=== PATIENT | female | born 1975 | race Caucasian/White ===

== ENCOUNTER → 2016-04-22 | Outpatient (CLI) | payer BC ==
--- NOTE | 2016-04-22 09:59 | US ---
EXAMINATION TYPE: US abd limited kidneys/bladder DATE OF EXAM: 04/22/2016 9:26 AM COMPARISON: 06/22/2015 CLINICAL HISTORY: 40-year-old female R10.9 R Flank Pain, R10.11 RUQ Pain. TECHNIQUE: Multiple sonographic images of the right upper quadrant, kidneys and bladder were obtained . FINDINGS: Liver Length: 16.1 cm Gallbladder Wall: 0.2 cm CBD: 0.3 cm Right Kidney: 11.4 x 6.5 x 6.3 cm Left Kidney: 10.6 x 5.5 x 5.5 cm Pancreas: Tail obscured by overlying bowel gas. Otherwise, grossly unremarkable. Liver: Coarsened echotexture may be on a technical basis. No focal lesion seen. Gallbladder: No abnormal gallbladder distention, wall thickening, pericholecystic fluid, or shadowing calculi. CBD: Within normal limits. Right Kidney: No hydronephrosis Left Kidney: No hydronephrosis Bladder: No gross abnormality of the urine distended bladder. Both ureteral jets are visualized. IMPRESSION: 1. Coarsened echotexture of the liver could be on a technical basis or could represent underlying non specific hepatocellular disease. Correlate with LFTs in patient risk factors. 2. No hydronephrosis. Both ureteral jets are seen.
== END | disposition home or self-care (01) ==
LOC: RADUSMAIN 08:59
PROVIDERS: ATTEND Family Medicine
DX: R10.11 Right upper quadrant pain (principal)
CPT/HCPCS: 76705; 76770

== ENCOUNTER → 2016-12-05 | Outpatient (CLI) | payer BC ==
[2016-12-05 13:47] LABS: Anion Gap 7 mmol/L; Blood Urea Nitrogen 5 mg/dL (7-17); Calcium 8.6 mg/dL (8.4-10.2); Carbon Dioxide 24 mmol/L (22-30); Chloride 105 mmol/L (98-107); Glucose 88 mg/dL (74-99); Non-African American GFR(MDRD) >60 (>60 ml/min/1.73 sqM); Potassium 3.9 mmol/L (3.5-5.1); Sodium 136 mmol/L (137-145)
[2016-12-05 14:25] LABS: Aty Lym Flag Slight; CH 32.6; CHCM 32.9; HCT 43.5 % (34.0-46.0); HDW 2.28; HGB 13.9 gm/dL (11.4-16.0); MCHC 32.1 g/dL (31.0-37.0); MCV 99.8 fL (80.0-100.0); Mean Platelet Volume 7.8; RBC 4.36 m/uL (3.80-5.40); RDW 13.4 % (11.5-15.5); WBC 8.4 k/uL (3.8-10.6); WBC (Perox) 8.87
[2016-12-05 14:35] LABS: Add Differential Manual Differential
[2016-12-05 14:39] LABS: Manual Review Performed; Nucleated Red Blood Cells 0 /100 WBC (0-0); Total Cells Counted 100
[2016-12-05 14:40] LABS: RBC Morphology Normal
== END | disposition home or self-care (01) ==
LOC: LABPAT 12:54
PROVIDERS: ATTEND Obstetrics & Gynecology
DX: Z01.812 Encounter for preprocedural laboratory examination (principal)
CPT/HCPCS: 80048; 85025; 86850; 86900; 86901

== ENCOUNTER → 2017-03-09 | Outpatient (CLI) | payer BC ==
--- NOTE | 2017-03-10 07:23 | MM ---
Reason for exam: clinical finding. Last mammogram was performed 3 years and 3 months ago. History: Patient is nulliparous. Taking hormonal contraceptives for 4 years. Indicated problem(s): lump or thickening in the right breast. Physical Findings: Nurse did not find any significant physical abnormalities on exam. MG Diagnostic Mammo w CAD LUZ Bilateral CC and MLO view(s) were taken. ML and spot compression MLO view(s) were taken of the left breast. Prior study comparison: December 15, 2013, bilateral MG screening mammo w CAD. The breast tissue is heterogeneously dense. This may lower the sensitivity of mammography. Nodular density upper outer quadrant 8.7cm from nipple noted. Ultrasound is recommended. These results were verbally communicated with the patient and result sheet given to the patient on 03/09/17. ASSESSMENT: Incomplete: need additional imaging evaluation, BI-RAD 0 RECOMMENDATION: Ultrasound of the left breast.
--- NOTE | 2017-03-10 07:24 | USB ---
Reason for exam: additional evaluation requested from abnormal screening. History: Patient is nulliparous. Taking hormonal contraceptives for 4 years. US Breast Limited LT Left breast ultrasound demonstrates no cystic or solid lesion seen. A 6 month follow up left mammogram recommended. These results were verbally communicated with the patient and result sheet given to the patient on 03/09/17. ASSESSMENT: Probably benign, BI-RAD 3 RECOMMENDATION: Follow-up diagnostic mammogram of the left breast in 6 months.
== END | disposition home or self-care (01) ==
LOC: RADMAMWWP 14:16
PROVIDERS: ATTEND Family Medicine
DX: N63.10 Unspecified lump in the right breast, unspecified quadrant (principal); R92.8 Other abnormal and inconclusive findings on diagnostic imaging of breast
CPT/HCPCS: 77066

== ENCOUNTER → 2017-06-11 | Outpatient (CLI) | payer BC ==
--- NOTE | 2017-06-11 15:50 | US ---
EXAMINATION TYPE: US pelvic complete DATE OF EXAM: 06/11/2017 COMPARISON: US February 03, 2015 CLINICAL HISTORY: R10.2 pelvic pain. Intermittent pelvic pain x coup le weeks, occasional bleeding since hysterectomy 6 months ago TECHNIQUE: Transabdominal (TA). Transabdominal sonographic images of the pelvis were acquired. Date of LMP: 2016 EXAM MEASUREMENTS: Uterus: surgically absent Endometrial Stripe: surgically absent Right Ovary: 3.1 x 2.5 x 2.9 cm Left Ovary: 3.0 x 1.5 x 2.7 cm 1. Uterus: surgically absent 2. Endometrium: surgically absent 3. Right Ovary: 1.4 x 1.4 x 1.5cm hypoechoic area 4. Left Ovary: wnl 5. Bilateral Adnexa: wnl 6. Posterior cul-de-sac: wnl There has been interval hysterectomy. There is 1.5 cm round anechoic lesion within right ovary likely reflecting simple small ovarian cyst IMPRESSION: A 1.5 cm simple small right ovarian cyst is present otherwise unremarkable study.
== END ==
LOC: RADUSWWP 14:54
PROVIDERS: ATTEND Obstetrics & Gynecology
DX: N83.291 Other ovarian cyst, right side (principal)
CPT/HCPCS: 76856

== ENCOUNTER → 2017-11-16 | Outpatient (CLI) | payer BC ==
--- NOTE | 2017-11-17 07:28 | MM ---
Reason for exam: follow-up at short interval from prior study. Last mammogram was performed 8 months ago. History: Patient is nulliparous. Taking hormonal contraceptives for 4 years. Physical Findings: Nurse did not find any significant physical abnormalities on exam. MG Diagnostic Mammo LT w CAD CC and MLO view(s) were taken of the left breast. Prior study comparison: March 09, 2017, bilateral MG diagnostic mammo w CAD LUZ. December 15, 2013, bilateral MG screening mammo w CAD. The breast tissue is heterogeneously dense. This may lower the sensitivity of mammography. There are benign appearing round calcifications in the left breast. Asymmetric breast tissue, stable, left posterior upper tissue. There is no discrete abnormality. These results were verbally communicated with the patient and result sheet given to the patient on 11/16/17. ASSESSMENT: Benign, BI-RAD 2 RECOMMENDATION: Routine screening mammogram of both breasts in 4 months. Back on schedule for February 2018.
== END | disposition home or self-care (01) ==
LOC: RADMAMWWP 15:30
PROVIDERS: ATTEND Family Medicine
DX: N63.21 Unspecified lump in the left breast, upper outer quadrant (principal)
CPT/HCPCS: 77065

== ENCOUNTER 2018-01-02 21:57 | Emergency (ER) | payer BC ==
[2018-01-02] MEDS ORDERED: KETOROLAC 30 MG/ML 1 ML VIAL IM STA (22:11)
--- NOTE | 2018-01-02 22:22 | XR ---
EXAMINATION TYPE: XR foot complete RT DATE OF EXAM: 01/02/2018 COMPARISON: NONE HISTORY: Right foot pain TECHNIQUE: 3 views FINDINGS: Metatarsals are intact. I see no fracture nor dislocation. There is plantar calcaneal spurr ing. There are no erosions. IMPRESSION: Calcaneal spurring. No fracture.
--- NOTE | 2018-01-02 22:32 | ED ---
Lower Extremity Injury HPI - General Source: patient Mode of arrival: ambulatory Limitations: no limitations <Merced Hill - Last Filed: 01/02/18 22:54> <Enriqueta Garcia - Last Filed: 01/03/18 00:04> - General Chief Complaint: Extremity Injury, Lower Stated Complaint: FOOT INJURY Time Seen by Provider: 01/02/18 22:07 - History of Present Illness Initial Comments: 42yo female with PMH of previous gastric bypass presenting today for cc of right foot pain. At around 9:35PM this evening pt was using laptop when it fell onto the top of her right foot. Pt stated that it immediately began to swell and bruise. pt admitted to pain with ambulation/weight bearing. Pt denies numbness, tingling, loss of sensation, inability to move toes, injury to ankle or any other extremity, pt denies falling. Upon arrival pt appears well, she is limping. Pt VS within acceptable limits. Remainder of ROS (-), patient denies any recent fever, chills, shortness of breath, chest pain, back pain, abdominal pain, nausea or vomiting, numbness or tingling, dysuria or hematuria, constipation or diarrhea, headaches or visual changes, or any other complaints. (Merced Hill) - Related Data Home Medications Medication Instructions Recorded Confirmed Multivitamins, Thera [Multivitamin] 1 tab PO DAILY 02/20/14 12/15/16 ALPRAZolam [Xanax] 0.25 mg PO DAILY PRN 12/10/16 12/15/16 Biotin 5,000 mcg PO DAILY 12/10/16 12/15/16 Cholecalciferol (Vitamin D3) 2,000 unit PO DAILY 12/10/16 12/15/16 [Vitamin D3] Melatonin 5 mg PO HS 12/10/16 12/15/16 Vitamin A (Unknown Dose) 1 tab PO DAILY 12/10/16 12/15/16 Previous Rx's Medication Instructions Recorded Acetaminophen-Codeine 300-30mg 1 tab PO Q4H PRN #30 tablet 12/15/16 [Tylenol #3] Ibuprofen [Motrin] 600 mg PO Q6HR PRN #30 tab 12/15/16 Allergies Allergy/AdvReac Type Severity Reaction Status Date / Time clindamycin HCl Allergy Anaphylaxis Verified 01/02/18 22:06 [From Cleocin] clindamycin palmitate HCl Allergy Anaphylaxis Verified 01/02/18 22:06 [From Cleocin] clindamycin phosphate Allergy Anaphylaxis Verified 01/02/18 22:06 [From Cleocin] Review of Systems ROS Other: All systems not noted in ROS Statement are negative. Constitutional: Denies: fever, chills Eyes: Denies: eye pain ENT: Denies: ear pain, throat pain Respiratory: Denies: cough, dyspnea, wheezes, hemoptysis, stridor Cardiovascular: Denies: chest pain, palpitations Gastrointestinal: Denies: abdominal pain, nausea, vomiting, diarrhea, constipation, hematemesis, melena Genitourinary: Denies: urgency, dysuria, frequency, hematuria Musculoskeletal: Reports: other (pain lateral aspect of right foot). Denies: back pain Skin: Reports: as per HPI, change in color (bruising, denies any pallor). Denies: rash, lesions Neurological: Denies: headache, weakness, numbness, paresthesias, confusion <Merced Hill L - Last Filed: 01/02/18 22:54> ROS Other: All systems not noted in ROS Statement are negative. <Enriqueta Garcia P - Last Filed: 01/03/18 00:04> ROS Statement: Those systems with pertinent positive or pertinent negative responses have been documented in the HPI. Past Medical History Past Medical History: No Reported History Additional Past Medical History / Comment(s): PT STATES HX OF FIBROIDS History of Any Multi-Drug Resistant Organisms: None Reported Past Surgical History: Bariatric Surgery, Tonsillectomy, Tubal Ligation, Uterine Ablation Additional Past Surgical History / Comment(s): GASTRIC SLEEVE, BENIGN LYMPH NODES GROIN REMOVED, EXPLORATORY ABDOMINAL SX, D&C X2 left knee arthroscopy, Past Anesthesia/Blood Transfusion Reactions: No Reported Reaction Past Psychological History: Anxiety Smoking Status: Never smoker Past Alcohol Use History: Occasional Past Drug Use History: None Reported - Past Family History Mother Family Medical History: Deep Vein Thrombosis (DVT) <Merced Hill - Last Filed: 01/02/18 22:54> General Exam Limitations: no limitations <Merced Hill - Last Filed: 01/02/18 22:54> <Enriqueta Garcia P - Last Filed: 01/03/18 00:04> - General Exam Comments Initial Comments: General: The patient is awake and alert, in no distress, and does not appear acutely ill. Eye: Pupils are equal, round and reactive to light, extra-ocular movements are intact. No nystagmus. There is normal conjunctiva bilaterally. No signs of icterus. Ears, nose, mouth and throat: There are moist mucous membranes and no oral lesions. Neck: The neck is supple, there is no tenderness or JVD. Cardiovascular: There is a regular rate and rhythm. No murmur, rub or gallop is appreciated. Respiratory: Lungs are clear to auscultation, respirations are non-labored, breath sounds are equal. No wheezes, stridor, rales, or rhonchi. Musculoskeletal: Upon inspection there is bruising near base of 5th metatarsal , no bruising or pain of the midfoot or forefoot. Pt admits to tenderness to palpation along length of fifth digit/metarsal. Pt is able to wiggle all five digits of the feet b/l equally. Strength 5/5 at the ankle equal b/l. Sensation intact. DP pulses equal bilaterally 2+. Compartments are soft and compressible. Neurological: A&O x 3. CN II-XII intact, There are no obvious motor or sensory deficits. Coordination appears grossly intact. Speech is normal. Skin: Skin is warm and dry and no rashes or lesions are noted. Psychiatric: Cooperative, appropriate mood & affect, normal judgment. (Merced Hill) Vital Signs 01/02/18 01/02/18 22:04 22:43 Temperature 98.1 F 98.2 F Pulse Rate 77 74 Respiratory 18 16 Rate Blood Pressure 119/68 132/77 O2 Sat by Pulse 99 97 Oximetry Medical Decision Making <Merced Hill L - Last Filed: 01/02/18 22:54> <Enriqueta Garcia P - Last Filed: 01/03/18 00:04> - Medical Decision Making XR (-), no concern for lisfranc at this time, no mid/forefoot pain or bruising. Pt neurovascularly intact, compartments soft and compressible. Pt was instructed to repeat XR in 5 days if symptoms persist and to ambulate using crutches for next 2-3 days. In addition pt was instructed to f/u with primary care within 48 hours. Ice was applied to the area, pt given toradol 30mg IM, she states she previously has tolerated reguardless of her bypass surgery. Pt placed in JENIFER bandage, pt states she has crutches for ambulation at home. Pt given work note for next 2 days. At this time after discussing all results with both patient and attending Dr. Garcia. I feel pt is stable for discharge. To parameters discussed at length with patient who verbalized understanding. All findings were discussed with patient from radiographic imaging. Patient was discharged in stable condition, patient agreeable with discharge. (Merced Hill) I was available for consultation in the emergency department. The history and physical exam were done by the midlevel provider. I was consulted for this patient's care. I reviewed the case with the midlevel provider and based on their presentation of the patient, I agree with the assessment, medical decision making and plan of care as documented. (Enriqueta Garcia) Disposition Is patient prescribed a controlled substance at d/c from ED?: No Time of Disposition: 22:32 <Merced Hill - Last Filed: 01/02/18 22:54> <Enriqueta Garcia - Last Filed: 01/03/18 00:04> Clinical Impression: Contusion of right foot Disposition: HOME SELF-CARE Condition: Good Instructions: Foot Contusion (ED) Additional Instructions: Please use over the counter pain medication as discussed. Please follow-up with family doctor in the next 2 days, if symptoms persist >5 days I would get repeat XRAY. Please use crutches for ambulation for next 2-3 days. Please return to emergency room if the symptoms increase or worsen or for any other concerns. Referrals: Rohan Olivo MD [Primary Care Provider] - 1-2 days
[2018-01-02 22:47] VITALS: BP 132/77; PULSE 74; RESP 16; TEMP 98.2
== END 2018-01-02 22:43 | disposition home or self-care (01) ==
LOC: EC 21:57
DX: S90.31XA Contusion of right foot, initial encounter (principal); Z88.1 Allergy status to other antibiotic agents; Z79.899 Other long term (current) drug therapy; W20.8XXA Other cause of strike by thrown, projected or falling object, initial encounter; Y93.89 Activity, other specified
CPT/HCPCS: 73630; 99283; 96372; J1885

== ENCOUNTER → 2020-04-30 | Outpatient (CLI) | payer BC ==
--- NOTE | 2020-05-02 12:05 | MM ---
Reason for exam: screening (asymptomatic). Last mammogram was performed 2 years and 5 months ago. History: Patient is nulliparous. Took hormonal contraceptives for 4 years. Physical Findings: A clinical breast exam by your physician is recommended on an annual basis and results should be correlated with mammographic findings. MG 3D Screening Mammo W/Cad Bilateral CC and MLO view(s) were taken. Prior study comparison: March 09, 2017, bilateral MG diagnostic mammo w CAD LUZ. December 15, 2013, bilateral MG screening mammo w CAD. The breast tissue is heterogeneously dense. This may lower the sensitivity of mammography. 10 o'clock right focal asymmetry is more defined and incompletely disperses on 3D images. ASSESSMENT: Incomplete: need additional imaging evaluation, BI-RAD 0 RECOMMENDATION: Special view mammogram of the right breast. (3D) If lesion persists on supplemental views, image directed ultrasound is recommended. [facility] will attempt to contact patient to return for supplemental views and ultrasound if indicated.
== END ==
LOC: RADMAMWWP 16:33
PROVIDERS: ATTEND Family Medicine
DX: Z12.31 Encounter for screening mammogram for malignant neoplasm of breast (principal)
CPT/HCPCS: 77063; 77067

== ENCOUNTER → 2020-05-10 | Outpatient (CLI) | payer BC ==
--- NOTE | 2020-05-13 14:13 | MM ---
Reason for exam: additional evaluation requested from abnormal screening. Last mammogram was performed less than 1 month ago. History: Patient is nulliparous. Took hormonal contraceptives for 4 years. Physical Findings: Nurse did not find any significant physical abnormalities on exam. MG 3D Work Up W/Cad RT Spot compression CC, spot compression MLO, and LM view(s) were taken of the right breast. Prior study comparison: April 30, 2020, bilateral MG 3d screening mammo w/cad. November 16, 2017, left breast MG diagnostic mammo LT w CAD. The breast tissue is heterogeneously dense. This may lower the sensitivity of mammography. No distinct lesion persists on additional views. These results were verbally communicated with the patient and result sheet given to the patient on 05/10/20. ASSESSMENT: Benign, BI-RAD 2 RECOMMENDATION: Return to routine screening mammogram schedule for both breasts.
== END | disposition home or self-care (01) ==
LOC: RADMAMWWP 15:07
PROVIDERS: ATTEND Family Medicine
DX: R92.2 Inconclusive mammogram (principal)
CPT/HCPCS: 77061; 77065

== ENCOUNTER → 2021-05-10 | Outpatient (CLI) | payer BC ==
[2021-05-10 17:17] LABS: Basophils # (A) 0.06 X 10*3/uL (0.00-0.10); Basophils % (A) 0.8 %; Eosinophils # (A) 0.45 X 10*3/uL (0.04-0.35); Eosinophils % (A) 6.2 %; HCT 43.7 % (37.2-46.3); HGB 14.1 g/dL (12.0-15.0); Immature Grans, Automated 0.1 %; Lymphocytes # (A) 2.62 X 10*3/uL (0.90-5.00); Lymphocytes % (A) 36.2 %; MCH 31.9 pg (27.0-32.0); MCHC 32.3 g/dL (32.0-37.0); MCV 98.9 fL (80.0-97.0); Mean Platelet Volume 11.4 fL (9.5-12.2); Monocytes # (A) 0.45 X 10*3/uL (0.20-1.00); Monocytes % (A) 6.2 %; NRBC Per 100 WBC 0 /100 WBCS (0.0-0.0); Neutrophils # (A) 3.64 X 10*3/uL (1.80-7.70); Neutrophils % (A) 50.5 %; Platelet Count 256 X 10*3/uL (140-440); RBC 4.42 X 10*6/uL (4.10-5.20); RDW 12.5 % (11.5-14.5); WBC 7.23 X 10*3/uL (4.50-10.00)
[2021-05-10 17:50] LABS: ALT 14 U/L (8-44); AST 14 U/L (13-35); African American GFR (CKD) 126.7 (60.0-200.0); Albumin 4.1 g/dL (3.8-4.9); Albumin/Globulin Ratio 1.72 (1.60-3.17); Alkaline Phosphatase 106 U/L (41-126); BUN/Creat Ratio 9.44 Ratio (12.00-20.00); C Reactive Protein <0.30 mg/dL (0.00-0.80); Carbon Dioxide 23.5 mmol/L (20.0-27.5); Chloride 104 mmol/L (96-109); Chol/HDL Ratio 4.75 Ratio; Globulin 2.4 g/dL (1.6-3.3); Glucose 95 mg/dL (70-110); LDL Cholesterol,Calculated 119.2 mg/dL (0.0-131.0); Non-African American GFR(CKD) 109.4 (60.0-200.0); Potassium 4.1 mmol/L (3.5-5.5); Sodium 137 mmol/L (135-145); Total Protein 6.5 g/dL (6.2-8.2)
== END | disposition home or self-care (01) ==
LOC: LABWHC1 10:24
PROVIDERS: ATTEND Family Medicine
DX: Z13.220 Encounter for screening for lipoid disorders (principal); R53.83 Other fatigue; Z13.1 Encounter for screening for diabetes mellitus
CPT/HCPCS: 36415; 80053; 80061; 82306; 84439; 84443; 84481; 84630; 85025; 86140

== ENCOUNTER → 2021-11-12 | Outpatient (CLI) | payer BC ==
--- NOTE | 2021-11-13 09:07 | MM ---
Reason for Exam: Screening (asymptomatic). Last mammogram was performed 1 year(s) and 6 month(s) ago. Patient History: Menarche at age 15. Patient has no children. Hysterectomy at age 41. Patient used Hormonal Contraceptives for 4 years. Risk Values: Jossy 5 year model risk: 0.9%. NCI Lifetime model risk: 10.7%. Prior Study Comparison: 11/16/2017 Left Diagnostic Mammogram, [facility]. 04/30/2020 Bilateral Screening Mammogram, [facility]. 05/10/2020 Right Diagnostic Mammogram, [facility]. Tissue Density: The breast tissue is heterogeneously dense. This may lower the sensitivity of mammography. Findings: Analyzed By CAD. There is no suspicious group of microcalcifications or new suspicious mass in either breast. Overall Assessment: Negative, BI-RAD 1 Management: Screening Mammogram of both breasts in 1 year. A clinical breast exam by your physician is recommended on an annual basis and results should be correlated with mammographic findings. [facility] will attempt to contact patient to return for supplemental views and ultrasound if indicated. Electronically signed and approved by: Conner Love DO
== END | disposition home or self-care (01) ==
LOC: RADMAMWWP 16:56
PROVIDERS: ATTEND Family Medicine
DX: Z12.31 Encounter for screening mammogram for malignant neoplasm of breast (principal)
CPT/HCPCS: 77063; 77067

== ENCOUNTER → 2022-07-11 | Outpatient (CLI) | payer BC ==
[2022-07-12 07:27] LABS: Basophils # (A) 0.04 X 10*3/uL (0.00-0.10); Basophils % (A) 0.6 %; Eosinophils # (A) 0.27 X 10*3/uL (0.04-0.35); Eosinophils % (A) 4.4 %; HCT 43.3 % (37.2-46.3); Immature Grans, Automated 0.2 %; Lymphocytes # (A) 2.25 X 10*3/uL (0.90-5.00); Lymphocytes % (A) 36.3 %; MCHC 32.3 g/dL (32.0-37.0); MCV 99.1 fL (80.0-97.0); Mean Platelet Volume 10.6 fL (9.5-12.2); Monocytes # (A) 0.44 X 10*3/uL (0.20-1.00); Monocytes % (A) 7.1 %; NRBC Per 100 WBC 0 /100 WBCS (0.0-0.0); Neutrophils # (A) 3.18 X 10*3/uL (1.80-7.70); Neutrophils % (A) 51.4 %; Platelet Count 281 X 10*3/uL (140-440); RBC 4.37 X 10*6/uL (4.10-5.20); RDW 12.3 % (11.5-14.5); WBC 6.19 X 10*3/uL (4.50-10.00)
[2022-07-12 11:35] LABS: C Reactive Protein <0.30 mg/dL (0.00-0.80)
[2022-07-12 11:43] LABS: ALT 13 U/L (8-44); AST 15 U/L (13-35); Albumin 3.8 g/dL (3.8-4.9); Albumin/Globulin Ratio 1.68 (1.60-3.17); Alkaline Phosphatase 99 U/L (41-126); BUN/Creat Ratio 12.22 Ratio (12.00-20.00); Calcium 9.2 mg/dL (8.7-10.3); Carbon Dioxide 24.3 mmol/L (20.0-27.5); Chloride 106 mmol/L (96-109); Chol/HDL Ratio 4.95 Ratio; Globulin 2.3 g/dL (1.6-3.3); Glucose 99 mg/dL (70-110); LDL Cholesterol,Calculated 129.8 mg/dL (0.0-131.0); Non-African American GFR(CKD) 107.9 (60.0-200.0); Potassium 4.4 mmol/L (3.5-5.5); Sodium 141 mmol/L (135-145); Total Protein 6.1 g/dL (6.2-8.2)
== END | disposition home or self-care (01) ==
LOC: LABWHC1 10:58
PROVIDERS: ATTEND Family Medicine
DX: Z13.1 Encounter for screening for diabetes mellitus (principal); Z13.220 Encounter for screening for lipoid disorders; R53.83 Other fatigue
CPT/HCPCS: 36415; 80053; 80061; 82306; 83036; 84439; 84443; 84481; 85025; 86140

== ENCOUNTER → 2022-11-25 | Outpatient (CLI) | payer BC ==
--- NOTE | 2022-11-26 08:52 | MM ---
Reason for Exam: Screening (asymptomatic). Last mammogram was performed 1 year(s) and 1 month(s) ago. Patient History: Menarche at age 15. Patient has no children. Hysterectomy at age 41. Patient used Hormonal Contraceptives for 4 years. Risk Values: Jossy 5 year model risk: 0.9%. NCI Lifetime model risk: 10.6%. Prior Study Comparison: 04/30/2020 Bilateral Screening Mammogram, [facility]. 05/10/2020 Right Diagnostic Mammogram, [facility]. 11/12/2021 Bilateral MG 3D screening mammo w/cad, [facility]. Tissue Density: The breast tissue is heterogeneously dense. This may lower the sensitivity of mammography. Findings: Analyzed By CAD. There is no suspicious group of microcalcifications or new suspicious mass in either breast. Overall Assessment: Negative, BI-RAD 1 Management: Screening Mammogram of both breasts in 1 year. . Patient should continue monthly self-breast exams. A clinical breast exam by your physician is recommended on an annual basis. This exam should not preclude additional follow-up of suspicious palpable abnormalities. Note on Jossy scores and lifetime risk: 1. A Jossy score greater than 3% is considered moderate risk. If this is the case, consider specialist referral to assess eligibility for a risk reducing agent. 2. If overall lifetime risk for the development of breast cancer is 20% or higher, the patient may qualify for future screening with alternating mammogram and breast MRI. Electronically signed and approved by: Arley Hayward M.D. Radiologis
== END | disposition home or self-care (01) ==
LOC: RADMAMWWP 16:51
PROVIDERS: ATTEND Family Medicine
DX: Z12.31 Encounter for screening mammogram for malignant neoplasm of breast (principal)
CPT/HCPCS: 77063; 77067

== ENCOUNTER 2024-04-28 12:49 | Day surgery (SDC) | payer BC ==
[2024-04-26 14:56] VITALS: BMI 40.3
[~2024-04-28 12:49] MED LIST: LACTATED RINGERS 1,000 ML IV SCH
[2024-04-28 13:31] VITALS: RESP 16; TEMP 97.7
[2024-04-28] MEDS: LACTATED RINGERS 1,000 ML IV ONE (13:38)
[2024-04-28] MEDS ORDERED: PROPOFOL 10 MG/ML 20 ML VIAL IV ONE (14:20)
--- NOTE | 2024-04-28 14:40 | P.PCN ---
Date of Procedure: 04/28/24 Procedure(s) Performed: BRIEF HISTORY: Patient is a 48-year-old pleasant white female scheduled for an elective colonoscopy as a part of screening for cancer. PROCEDURE PERFORMED: Colonoscopy. PREOPERATIVE DIAGNOSIS: Screening for colon cancer. IV sedation per Anesthesia. PROCEDURE: After informed consent was obtained, the patient, was brought into the endoscopy unit. IV sedation was administered by Anesthesia under continuous monitoring. Digital rectal examination was normal. Initially the Olympus CF-160 flexible video colonoscope was then inserted in the rectum, gradually advanced into the cecum without any difficulty. Careful examination was performed as the scope was gradually being withdrawn. Ileocecal valve and the appendiceal orifice were visualized and appeared normal. Prep was excellent. Mucosa of the cecum, ascending colon, transverse colon, descending colon, sigmoid colon, and rectum appeared normal. Retroflexion was performed in the rectum and no lesions were seen. The patient tolerated the procedure well. IMPRESSION: Normal-appearing colon from rectum to cecum with no evidence of colorectal neoplasia . RECOMMENDATIONS: Findings of this examination were discussed with the patient as well as her family. She was advised to have repeat screening colonoscopy in 10 years..
[2024-04-28 15:03] VITALS: BP 110/63; PULSE 70
== END 2024-04-28 15:28 | disposition home or self-care (01) ==
LOC: ORWHC2ENDO 12:49
PROVIDERS: ATTEND Internal Medicine Gastroenterology
DX: Z12.11 Encounter for screening for malignant neoplasm of colon (principal); F41.9 Anxiety disorder, unspecified; F32.A Depression, unspecified; Z88.1 Allergy status to other antibiotic agents; Z90.710 Acquired absence of both cervix and uterus; Z98.890 Other specified postprocedural states; Z98.84 Bariatric surgery status
CPT/HCPCS: 45378; J2704

== ENCOUNTER → 2024-05-25 | Outpatient (CLI) | payer BC ==
--- NOTE | 2024-05-26 13:52 | MM ---
Reason for Exam: Screening (asymptomatic). Last mammogram was performed 1 year(s) and 6 month(s) ago. Patient History: Menarche at age 15. Patient has no children. Hysterectomy at age 41. Patient used Hormonal Contraceptives for 4 years. Risk Values: Jossy 5 year model risk: 0.9%. NCI Lifetime model risk: 10.5%. Prior Study Comparison: 05/10/2020 Right Diagnostic Mammogram, [facility]. 11/12/2021 Bilateral MG 3D screening mammo w/cad, [facility]. 11/25/2022 Bilateral MG 3D screening mammo w/cad, [facility]. Tissue Density: The breasts are heterogeneously dense, which may obscure small masses. Findings: Analyzed By CAD. There is no suspicious group of microcalcifications or new suspicious mass in either breast. Stable nodular density right breast. Overall Assessment: Benign, BI-RAD 2 Management: Screening Mammogram of both breasts in 1 year. Patient should continue monthly self-breast exams. A clinical breast exam by your physician is recommended on an annual basis. This exam should not preclude additional follow-up of suspicious palpable abnormalities. Note on Jossy scores and lifetime risk: 1. A Jossy score greater than 3% is considered moderate risk. If this is the case, consider specialist referral to assess eligibility for a risk reducing agent. 2. If overall lifetime risk for the development of breast cancer is 20% or higher, the patient may qualify for future screening with alternating mammogram and breast MRI. Electronically signed and approved by: Arley Hayward M.D. Radiologis
== END | disposition home or self-care (01) ==
LOC: RADMAMWWP 16:04
PROVIDERS: ATTEND Family Medicine
DX: Z12.31 Encounter for screening mammogram for malignant neoplasm of breast (principal); R92.333 Mammographic heterogeneous density, bilateral breasts; Z92.0 Personal history of contraception
CPT/HCPCS: 77063; 77067